=== PATIENT | female | born 1965 | race Caucasian/White ===

== ENCOUNTER 2022-10-05 09:41 | Day surgery (SDC) | payer OTHER ==
[~2022-10-05] VITALS: Ht 170.2 cm; Wt 105.6 kg
[2022-10-05] MEDS ORDERED: DILT120 PO (11:35)
[2022-10-05] MEDS ORDERED: IBUP800 PO (11:35)
[2022-10-05] MEDS ORDERED: LEVSOD75 PO (11:36)
[2022-10-05] MEDS ORDERED: TIZA4 PO (11:36)
--- NOTE | 2022-10-05 16:34 | NUR ---
Discharge instructions reviewed with patient. Patient verbalizes understanding. Copy given to patient to take home. Discharged via wheelchair to private car for ride home.
== END 2022-10-05 16:20 | disposition home or self-care (01) ==
LOC: ORSCMMR 09:41 → ORD 11:15 → ORSCMMR 11:15
PROVIDERS: Surgery
PROC: 0JH60WZ Insertion of Totally Implantable Vascular Access Device into Chest Subcutaneous Tissue and Fascia, Open Approach (ICD-10-PCS; principal; 2022-10-05 13:00)
PROC: B543ZZA Ultrasonography of Right Jugular Veins, Guidance (ICD-10-PCS; principal; 2022-10-05 13:00)
PROC: 05HM33Z Insertion of Infusion Device into Right Internal Jugular Vein, Percutaneous Approach (ICD-10-PCS; principal; 2022-10-05 13:00)
DX: C50.811 Malignant neoplasm of overlapping sites of right female breast (principal); I10 Essential (primary) hypertension; Z87.891 Personal history of nicotine dependence; E03.9 Hypothyroidism, unspecified; I48.0 Paroxysmal atrial fibrillation; Z79.899 Other long term (current) drug therapy
CPT/HCPCS: 77001; C1788; J0690; J1100; J1642; J2250; J2405; J2704; J2795; J3010; J7120

== ENCOUNTER 2022-11-18 08:10 | Day surgery (SDC) | payer OTHER ==
[~2022-11-18 08:10] MED LIST: DILT120 PO; IBUP800 PO; LEVSOD75 PO; TIZA4 PO
== END 2022-11-18 22:55 | disposition home or self-care (01) ==
LOC: RAD 08:10
DX: C50.811 Malignant neoplasm of overlapping sites of right female breast (principal)
CPT/HCPCS: 36598; Q9967

== ENCOUNTER → 2022-12-30 | Outpatient (CLI) | payer OTHER ==
[2022-12-30 08:55] LABS: Albumin, Blood 3.8 g/dL (3.4-5.0); Albumin/Globulin Ratio 1.2 (0.8-1.8); Bilirubin, Total 0.4 mg/dL (0.1-1.0); Bun/Creatinine Ratio 13.8 (12.0-20.0); Calcium, Blood 9.1 mg/dL (8.5-10.1); Creatinine, Blood 0.8 mg/dL (0.40-1.00); Globulin, Blood 3.3 g/dL (2.2-4.0); Potassium, Blood 4.1 mmol/L (3.5-5.5); Thyroid Stimulating Hormone 2.86 uIU/mL (0.360-4.800); Total Protein, Blood 7.1 g/dL (6.4-8.2)
== END ==
LOC: LAB SHORT 07:10 → LAB 07:10
PROVIDERS: Physician Assistant
DX: E78.2 Mixed hyperlipidemia (principal); E03.9 Hypothyroidism, unspecified; R73.03 Prediabetes
CPT/HCPCS: 80053; 83036; 84443

== ENCOUNTER 2023-03-22 08:53 | Day surgery (SDC) | payer OTHER ==
[2023-03-24] MEDS ORDERED: METO25ER PO (10:29)
[2023-03-24] MEDS ORDERED: FURO20 PO (10:29)
[2023-03-24] MEDS ORDERED: POTCHL20ER PO (10:29)
[2023-03-27] MEDS ORDERED: HYDR1TAB94 PO (11:41)
== END 2023-04-02 22:48 | disposition home or self-care (01) ==
LOC: MOI US 08:53
DX: C50.911 Malignant neoplasm of unspecified site of right female breast (principal)
CPT/HCPCS: 76942; A4648

== ENCOUNTER 2023-03-26 07:05 | Day surgery (SDC) | payer OTHER ==
[2023-03-26] VITALS (19 sets, daily range): BP systolic 98–171; BP diastolic 68–132
[~2023-03-26] VITALS: Ht 170.2 cm; Wt 104.1 kg
[~2023-03-26 07:05] MED LIST changes: +FURO20 PO; +METO25ER PO; +POTCHL20ER PO
--- NOTE | 2023-03-26 07:59 | NUR ---
Ambulatory in Day Surgery. History, Chart, Medications and Allergies reviewed before start of procedure. Lungs clear T/O to Auscultation. Patient confirms NPO status and agrees with scheduled surgery. Pre-Op teaching done. Pt verbalizes understanding. Patient States Post-Procedure ride home has been arranged. PT BELONGINGS PLACED UNDERNEATH GURNEY FOR SAFEKEEPING. PT GLASSES TAKEN TO PACU FOR SAFEKEEPING.
--- NOTE | 2023-03-26 19:45 | NUR ---
SUMMARY: PT DOING WELL POST OP. VSS, A/O. 30ML OUT OF DIMA DRAIN X2 SS DRAINAGE. PT IS AMBULATING, VOIDING AND NORRIS DIET. PAIN APPEARS TO BE WELL MANAGED. SURGICAL SITE WNL.
[2023-03-27 00:31] VITALS: BP 103/61
[2023-03-27 03:23] VITALS: BP 106/61
--- NOTE | 2023-03-27 04:19 | NUR ---
SHIFT SUMMARY PT POD 0 BILAT MASTECTOMY, PT HAS DONE WELL T/O THE NIGHT. BILAT DIMA DRAINS IN PLACE WITH 10 CC SEROSANGUINEOUS DISCHARGE. BINDER IS IN PLACE. INTERMITTENT PAIN RELIEVED WITH MEDS PER EMAR. POST OP VITALS STABLE. BED IN LOWEST POSITION, CALL LIGHT WITHIN REACH.
[2023-03-27 07:33] VITALS: BP 103/59
[2023-03-27] MEDS ORDERED: HYDR1TAB94 PO (11:41)
[2023-03-27 12:23] VITALS: BP 122/62
--- NOTE | 2023-03-27 12:58 | NUR ---
DISCHARGE PT PROVIDED WITH WRITTEN AND VERBAL DISCHARGE INSTRUCTIONS, SHE AND HER REPORTED UNDERSTANDING. CLEAN DRESSINGS, DRAIN RECORD AND MEASUREMENT DEVICE PROVIDED TO PATIENT. PT ASSISTED OUT IN W/C AN APPROXIMATELY 1250.
== END 2023-03-27 12:57 | disposition home or self-care (01) ==
LOC: ORSCMMR 07:05 → ORD 08:30 → SURS 13:15 → ORSCMMR 03-27 12:57
PROVIDERS: Surgery
PROC: 0JPT0WZ Removal of Totally Implantable Vascular Access Device from Trunk Subcutaneous Tissue and Fascia, Open Approach (ICD-10-PCS; principal; 2023-03-26 08:30)
PROC: 0HBV0ZZ Excision of Bilateral Breast, Open Approach (ICD-10-PCS; principal; 2023-03-26 08:30)
PROC: 07B50ZX Excision of Right Axillary Lymphatic, Open Approach, Diagnostic (ICD-10-PCS; principal; 2023-03-26 08:30)
DX: C50.911 Malignant neoplasm of unspecified site of right female breast (principal); Z40.01 Encounter for prophylactic removal of breast; C77.3 Secondary and unspecified malignant neoplasm of axilla and upper limb lymph nodes; E78.5 Hyperlipidemia, unspecified; Z87.891 Personal history of nicotine dependence; E03.9 Hypothyroidism, unspecified; R73.03 Prediabetes; E66.9 Obesity, unspecified; Z68.36 Body mass index [BMI] 36.0-36.9, adult; K21.9 Gastro-esophageal reflux disease without esophagitis; Z79.899 Other long term (current) drug therapy
CPT/HCPCS: 88305; A9270; J0690; J1100; J1885; J2250; J2371; J2405; J2704; J3010; J7120

== ENCOUNTER → 2024-08-11 | Outpatient (CLI) | payer OTHER ==
[~2024-08-11] MED LIST changes: +HYDR1TAB94 PO
== END ==
LOC: LAB SHORT 13:09
DX: R05.8 Other specified cough (principal); R06.02 Shortness of breath; R61 Generalized hyperhidrosis; R68.83 Chills (without fever)
CPT/HCPCS: 87070; 87147; 87205